=== PATIENT | female | born 1940 | race Caucasian/White ===

== ENCOUNTER 2025-02-20 00:31 | Emergency (ER) | payer BC ==
[~2025-02-20] VITALS: Ht 165.1 cm; Wt 65.0 kg
[2025-02-20 00:40] VITALS: O2SAT 98
[2025-02-20 04:32] VITALS: BP 140/47; PULSE 65; RESP 16; TEMP 36.8; O2SAT 99
== END 2025-02-20 04:59 ==
LOC: ER 00:31
DX: S01.01XA Laceration without foreign body of scalp, initial encounter (principal); F03.90 Unspecified dementia, unspecified severity, without behavioral disturbance, psychotic disturbance, mood disturbance, and anxiety; Y04.8XXA Assault by other bodily force, initial encounter; Y93.89 Activity, other specified; Y92.89 Other specified places as the place of occurrence of the external cause; Y99.8 Other external cause status
CPT/HCPCS: 12001; 99284